=== PATIENT | male | born 1960 | race Caucasian/White ===

== ENCOUNTER 2020-01-18 11:57 | Observation (INO) ==
[2020-01-18 12:17] LABS: Basophils % 0.8 % (0.0-0.8); Eosinophils # 0.1 10*3/uL (0.0-0.87); Eosinophils % 2.6 % (0.00-10.9); Hematocrit 43.1 VOL% (42.0-52.0); Hemoglobin 15.3 GM/DL (14.0-18.0); Immature Granulocytes % 0.2 %; Immature Granulocytes Absolute 0.01 #; Lymphocytes # 1.4 10*3/uL (1.4-4.0); Lymphocytes % 25.8 % (21.2-54.2); Mean Corpuscular HGB Conc 35.5 GM/DL (32-36); Mean Platelet Volume 9.4 FL (9.6-12.0); Monocytes % 5.1 % (1.7-12.7); Neutrophils % 65.5 % (38.7-73.9); Platelet Count 320 T/CUMM (130-400); Red Blood Count 4.79 MC/CUMM (3.8-5.5); Red Cell Distribution Width 12.8 % (9.3-17.3); White Blood Count 5.3 T/CUMM (4-12)
[2020-01-18] MEDS ORDERED: ASPIRIN 325 MG TABLET ONE (12:29)
[2020-01-18] MEDS ORDERED: ASPIRIN 325 MG TABLET PO STA (12:31)
[2020-01-18 12:37] LABS: Bilirubin,Total 1.2 MG/DL (0.2-1.0); Calcium 9.3 MG/DL (8.5-10.1); Osmolality,Calculated 284.5 MOS/KG (273-304); Total Protein 7.9 G/DL (6.4-8.3)
[2020-01-18] MEDS ORDERED: MORPHINE 4 MG/1 ML VIAL IV STA (12:40)
[2020-01-18] MEDS ORDERED: ENOXAPARIN 100 MG/ML SYRINGE SUBCUT STA (12:40)
[2020-01-18] MEDS ORDERED: NITROGLYCERIN 2% OINT 1 INCH/GM PACK TOP STA (12:40)
[2020-01-18] MEDS ORDERED: ONDANSETRON 4 MG/2 ML VIAL IV STA (12:40)
[2020-01-18] MEDS ORDERED: MORPHINE 4 MG/1 ML VIAL ONE (12:41)
[2020-01-18] MEDS ORDERED: NITROGLYCERIN 2% OINT 1 INCH/GM PACK TOP ONE (12:41)
[2020-01-18] MEDS ORDERED: ONDANSETRON 4 MG/2 ML VIAL ONE (12:41)
[2020-01-18] MEDS ORDERED: ENOXAPARIN 60 MG/0.6 ML SYRINGE ONE (12:43)
[2020-01-18] MEDS ORDERED: MAGNESIUM SULF RIDER 2 GM in PREMIX 1 EACH IV PRN (13:07)
[2020-01-18] MEDS ORDERED: MAGNESIUM SULF RIDER 4 GM in PREMIX 1 EACH IV PRN (13:07)
[2020-01-18 13:10] LABS: PT Patient Result 10.5 SECS (9.8-11.9); Partial Thromboplastin Time 27.1 SECS (23.9-33.8)
[2020-01-18] MEDS ORDERED: LABETALOL 20 MG/4 ML SYRINGE IV ONE (13:33)
[2020-01-18] MEDS ORDERED: HEPARIN/NACL 0.9% 2 UNITS/ML 1,000 ML IV ONE (13:36)
[2020-01-18] MEDS ORDERED: LIDOCAINE 1% 20 ML VIAL ONE (13:36)
[2020-01-18] MEDS ORDERED: LABETALOL 20 MG/4 ML SYRINGE IV STA (13:48)
[2020-01-18] MEDS ORDERED: fentaNYL 100 MCG/2 ML VIAL ONE (13:51)
[2020-01-18] MEDS ORDERED: MIDAZOLAM 2 MG/2 ML VIAL ONE (13:51)
[2020-01-18] MEDS ORDERED: HYDROmorphone 2 MG/1 ML VIAL ONE (13:52)
[2020-01-18] MEDS ORDERED: diphenhydrAMINE 50 MG/1 ML VIAL ONE (14:06)
[2020-01-18] MEDS ORDERED: ZALEPLON 5 MG CAPSULE PO PRN (14:36)
[2020-01-18] MEDS ORDERED: NITROGLYCERIN SL 0.4 MG TABLET SL PRN (14:38)
[2020-01-18] MEDS: SODIUM CHLORIDE 0.9% 1,000 ML IV SCH ×2 (15:35→22:33)
[2020-01-18] MEDS ORDERED: INFLUENZA VIRUS VACCINE 0.5 ML SYRINGE IM ONE (15:35)
[2020-01-18] MEDS ORDERED: PNEUMOCOCCAL VACCINE (13 VALENT) 0.5 ML SYRINGE IM ONE (15:35)
[2020-01-18] MEDS ORDERED: ONDANSETRON 4 MG/2 ML VIAL IV PRN (20:33)
[2020-01-18] MEDS: ACETAMINOPHEN 500 MG TABLET PO PRN (21:09)
[2020-01-18] MEDS: DICLOFENAC SODIUM 75 MG TABLET PO SCH (21:11)
[2020-01-18] MEDS: ENOXAPARIN 60 MG/0.6 ML SYRINGE SUBCUT SCH (21:12)
[2020-01-18] MEDS: carvediloL 3.125 MG TABLET PO SCH (21:41)
[2020-01-19] MEDS: ACETAMINOPHEN 500 MG TABLET PO PRN (03:19)
[2020-01-19 06:24] LABS: Risk Ratio 6.03; VLDL CHOLESTEROL 25.2 MG/DL
[2020-01-19 06:25] LABS: Calcium 8.4 MG/DL (8.5-10.1)
[2020-01-19] MEDS: SODIUM CHLORIDE 0.9% 1,000 ML IV SCH (07:16)
[2020-01-19 07:28] VITALS: BP 107/70
[2020-01-19] MEDS: ENOXAPARIN 60 MG/0.6 ML SYRINGE SUBCUT SCH (08:31)
[2020-01-19] MEDS: carvediloL 3.125 MG TABLET PO SCH (08:32)
[2020-01-19] MEDS: DICLOFENAC SODIUM 75 MG TABLET PO SCH (08:32)
[2020-01-19] MEDS ORDERED: ASPIRIN EC 81 MG TABLET PO SCH (09:00)
[2020-01-19] MEDS ORDERED: lisinopriL 10 MG TABLET PO SCH (09:00)
[2020-01-19] MEDS ORDERED: buPROPion XL 150 MG TABLET PO SCH (09:00)
== END 2020-01-19 09:26 | disposition home or self-care (01) ==
LOC: N.EDINP 11:57 → N.ED 11:57 → N.EDINP 13:00 → N.TELES 15:12
PROVIDERS: ADMIT Internal Medicine Cardiovascular Disease; ATTEND Internal Medicine Cardiovascular Disease
PROC: CLCCHCL (ICD-10-PCS; 2020-01-18 14:45)

== ENCOUNTER 2020-05-09 14:53 | Inpatient (IN) ==
[2020-05-09] MEDS ORDERED: oxyCODONE/ACETAMINOPHEN 5-325 MG TABLET PO PRN (15:57)
[2020-05-09] MEDS ORDERED: ACETAMINOPHEN 325 MG TABLET PO PRN (15:57)
[2020-05-09] MEDS ORDERED: HEPARIN DRIP 25,000 UNITS/500 ML PREMIX IV SCH (16:30)
[2020-05-09 16:51] LABS: PT Patient Result 10.3 SECS (9.8-11.9); Partial Thromboplastin Time 27.8 SECS (23.9-33.8)
[2020-05-09] MEDS: ONDANSETRON 4 MG/2 ML VIAL IV PRN (20:09)
[2020-05-09] MEDS: HYDROmorphone 2 MG/1 ML VIAL IV PRN (20:10)
[2020-05-09] MEDS: LACTATED RINGERS 1,000 ML IV SCH (21:57)
[2020-05-10] MEDS: HYDROmorphone 2 MG/1 ML VIAL IV PRN ×6 (00:23→23:09)
[2020-05-10] MEDS: ONDANSETRON 4 MG/2 ML VIAL IV PRN (03:52)
[2020-05-10] MEDS ORDERED: MIDAZOLAM 2 MG/2 ML VIAL IV ONE (07:13)
[2020-05-10] MEDS ORDERED: DIAZEPAM 5 MG TABLET PO ONE (07:13)
[2020-05-10] MEDS ORDERED: fentaNYL 100 MCG/2 ML VIAL IV ONE (07:13)
[2020-05-10] MEDS ORDERED: ceFAZolin 1,000 MG in SYRINGE 1 EACH IV ONE (07:16)
[2020-05-10] MEDS: ROSUVASTATIN 20 MG TABLET PO SCH (08:22)
[2020-05-10] MEDS: PANTOPRAZOLE 40 MG TABLET PO SCH (08:22)
[2020-05-10] MEDS: GABAPENTIN 300 MG CAPSULE PO SCH ×2 (08:22→21:05)
[2020-05-10] MEDS ORDERED: HEPARIN/NACL 0.9% 2 UNITS/ML 2,000 ML IV ONE (10:14)
[2020-05-10] MEDS ORDERED: HYDROmorphone 2 MG/1 ML VIAL IV ONE (11:26)
[2020-05-10] MEDS ORDERED: ALTEPLASE 2 MG VIAL ONE ×2 (12:02→12:26)
[2020-05-10] MEDS ORDERED: HEPARIN 5,000 UNIT/1 ML VIAL ONE (12:03)
[2020-05-10] MEDS ORDERED: NITROGLYCERIN DRIP 50 MG/250 ML BOTTLE IV ONE (12:12)
[2020-05-10] MEDS ORDERED: ALTEPLASE 24 MG in SODIUM CHLORIDE 0.9% 480 ML IV SCH (13:00)
[2020-05-10] MEDS: HEPARIN DRIP 25,000 UNITS/500 ML PREMIX IV SCH (13:45)
[2020-05-10] MEDS ORDERED: LIDOCAINE 1% 5 ML VIAL ONE (14:06)
[2020-05-10] MEDS ORDERED: BUPIVACAINE MPF 0.25% 30 ML VIAL ONE (14:06)
[2020-05-10] MEDS ORDERED: DEXAMETHASONE 4 MG/1 ML VIAL ONE (14:07)
[2020-05-10 14:31] LABS: PT Patient Result 10.8 SECS (9.8-11.9)
[2020-05-10 14:37] LABS: Partial Thromboplastin Time 67.7 SECS (23.9-33.8)
[2020-05-10] MEDS: SODIUM CHLORIDE 0.45% 1,000 ML IV SCH (14:48)
[2020-05-10] MEDS: LACTATED RINGERS 1,000 ML IV SCH ×2 (14:48→16:26)
[2020-05-10 16:28] LABS: PT Patient Result 10.6 SECS (9.8-11.9)
[2020-05-10] MEDS: oxyCODONE/ACETAMINOPHEN 5-325 MG TABLET PO PRN ×2 (17:41→22:01)
[2020-05-11 01:23] LABS: PT Patient Result 10.8 SECS (9.8-11.9)
[2020-05-11] MEDS: HYDROmorphone 2 MG/1 ML VIAL IV PRN ×3 (03:01→13:05)
[2020-05-11] MEDS: oxyCODONE/ACETAMINOPHEN 5-325 MG TABLET PO PRN ×2 (03:46→10:52)
[2020-05-11] MEDS ORDERED: LIDOCAINE 100 MG/5 ML SYRINGE IV ONE (04:21)
[2020-05-11] MEDS ORDERED: KETOROLAC 30 MG/1 ML VIAL IV ONE (04:32)
[2020-05-11] MEDS: ROSUVASTATIN 20 MG TABLET PO SCH (08:23)
[2020-05-11] MEDS: PANTOPRAZOLE 40 MG TABLET PO SCH (08:23)
[2020-05-11] MEDS: GABAPENTIN 300 MG CAPSULE PO SCH ×3 (08:23→20:47)
[2020-05-11] MEDS: LACTATED RINGERS 1,000 ML IV SCH (11:57)
[2020-05-11] MEDS ORDERED: NALOXONE 0.4 MG/ML VIAL IV PRN (12:25)
[2020-05-11 13:14] LABS: Partial Thromboplastin Time 33.6 SECS (23.9-33.8)
[2020-05-11] MEDS: HEPARIN DRIP 25,000 UNITS/500 ML PREMIX IV SCH (14:23)
[2020-05-11] MEDS: SODIUM CHLORIDE 0.45% 1,000 ML IV SCH (15:40)
[2020-05-11] MEDS: HYDROmorphone PCA 30 MG/30 ML SYRINGE IV SCH (15:40)
[2020-05-11] MEDS: ASPIRIN EC 81 MG TABLET PO SCH (15:52)
[2020-05-11] MEDS: ONDANSETRON 4 MG/2 ML VIAL IV PRN (20:47)
[2020-05-12] MEDS: oxyCODONE/ACETAMINOPHEN 5-325 MG TABLET PO PRN ×4 (00:05→20:18)
[2020-05-12 01:04] LABS: Partial Thromboplastin Time 29.4 SECS (23.9-33.8)
[2020-05-12] MEDS: SODIUM CHLORIDE 0.45% 1,000 ML IV SCH (07:30)
[2020-05-12] MEDS: GABAPENTIN 300 MG CAPSULE PO SCH (09:11)
[2020-05-12] MEDS: PANTOPRAZOLE 40 MG TABLET PO SCH (09:11)
[2020-05-12] MEDS: ASPIRIN EC 81 MG TABLET PO SCH (09:11)
[2020-05-12] MEDS: ROSUVASTATIN 20 MG TABLET PO SCH (09:11)
[2020-05-12] MEDS: ONDANSETRON 4 MG/2 ML VIAL IV PRN (09:22)
[2020-05-12 13:02] LABS: Partial Thromboplastin Time 28.4 SECS (23.9-33.8)
[2020-05-12] MEDS: diphenhydrAMINE CAP 25 MG CAPSULE PO PRN (13:18)
[2020-05-12] MEDS: GABAPENTIN 400 MG CAPSULE PO SCH ×2 (14:45→20:18)
[2020-05-12] MEDS: HYDROmorphone PCA 30 MG/30 ML SYRINGE IV SCH (21:47)
[2020-05-13] MEDS: oxyCODONE/ACETAMINOPHEN 5-325 MG TABLET PO PRN ×3 (03:07→19:39)
[2020-05-13] MEDS: SODIUM CHLORIDE 0.45% 1,000 ML IV SCH ×2 (07:30→19:40)
[2020-05-13] MEDS: ASPIRIN EC 81 MG TABLET PO SCH (09:24)
[2020-05-13] MEDS: ROSUVASTATIN 20 MG TABLET PO SCH (09:25)
[2020-05-13] MEDS: GABAPENTIN 400 MG CAPSULE PO SCH ×3 (09:26→20:57)
[2020-05-13] MEDS: PANTOPRAZOLE 40 MG TABLET PO SCH (09:26)
[2020-05-13] MEDS: diphenhydrAMINE CAP 25 MG CAPSULE PO PRN ×2 (11:27→17:33)
[2020-05-13] MEDS: HYDROmorphone PCA 30 MG/30 ML SYRINGE IV SCH (12:30)
[2020-05-13 12:53] LABS: Partial Thromboplastin Time 27.3 SECS (23.9-33.8)
[2020-05-13] MEDS: buPROPion XL 150 MG TABLET PO SCH (13:27)
[2020-05-14] MEDS: oxyCODONE/ACETAMINOPHEN 5-325 MG TABLET PO PRN ×3 (03:53→21:34)
[2020-05-14] MEDS: ASPIRIN EC 81 MG TABLET PO SCH (09:42)
[2020-05-14] MEDS: GABAPENTIN 400 MG CAPSULE PO SCH (09:43)
[2020-05-14] MEDS: ROSUVASTATIN 20 MG TABLET PO SCH (09:43)
[2020-05-14] MEDS: diphenhydrAMINE CAP 25 MG CAPSULE PO PRN ×3 (09:43→21:34)
[2020-05-14] MEDS: PANTOPRAZOLE 40 MG TABLET PO SCH (09:43)
[2020-05-14] MEDS: buPROPion XL 150 MG TABLET PO SCH (09:43)
[2020-05-14] MEDS: GABAPENTIN 600 MG TABLET PO SCH ×2 (15:47→21:34)
[2020-05-14] MEDS: HYDROmorphone PCA 30 MG/30 ML SYRINGE IV SCH (17:33)
[2020-05-14] MEDS: ONDANSETRON 4 MG/2 ML VIAL IV PRN (21:43)
[2020-05-15] MEDS: SODIUM CHLORIDE 0.45% 1,000 ML IV SCH ×2 (08:33→17:31)
[2020-05-15] MEDS: ASPIRIN EC 81 MG TABLET PO SCH (08:33)
[2020-05-15] MEDS: PANTOPRAZOLE 40 MG TABLET PO SCH (08:34)
[2020-05-15] MEDS: ROSUVASTATIN 20 MG TABLET PO SCH (08:34)
[2020-05-15] MEDS: GABAPENTIN 600 MG TABLET PO SCH ×3 (08:34→21:39)
[2020-05-15] MEDS: buPROPion XL 150 MG TABLET PO SCH (11:54)
[2020-05-15] MEDS ORDERED: LIDOCAINE 1% 5 ML VIAL ONE (15:37)
[2020-05-15] MEDS ORDERED: BUPIVACAINE 0.5% 50 ML VIAL ONE (15:37)
[2020-05-15] MEDS ORDERED: BUPIVACAINE MPF 0.25% 30 ML VIAL ONE (15:37)
[2020-05-15] MEDS ORDERED: DEXAMETHASONE 4 MG/1 ML VIAL ONE (15:38)
[2020-05-15] MEDS ORDERED: ROPIVACAINE 0.5% 30 ML VIAL ONE (15:52)
[2020-05-15] MEDS ORDERED: MIDAZOLAM 2 MG/2 ML VIAL ONE (15:53)
[2020-05-15] MEDS ORDERED: fentaNYL 100 MCG/2 ML VIAL ONE (15:53)
[2020-05-15] MEDS: HYDROmorphone PCA 30 MG/30 ML SYRINGE IV SCH (17:38)
[2020-05-15] MEDS: oxyCODONE/ACETAMINOPHEN 5-325 MG TABLET PO PRN (21:40)
[2020-05-16] MEDS: oxyCODONE/ACETAMINOPHEN 5-325 MG TABLET PO PRN ×2 (04:45→10:04)
[2020-05-16] MEDS: ONDANSETRON 4 MG/2 ML VIAL IV PRN (04:46)
[2020-05-16] MEDS: buPROPion XL 150 MG TABLET PO SCH (09:15)
[2020-05-16] MEDS: ROSUVASTATIN 20 MG TABLET PO SCH (09:16)
[2020-05-16] MEDS: ASPIRIN EC 81 MG TABLET PO SCH (09:16)
[2020-05-16] MEDS: GABAPENTIN 600 MG TABLET PO SCH (09:16)
[2020-05-16] MEDS: SODIUM CHLORIDE 0.45% 1,000 ML IV SCH (09:16)
[2020-05-16] MEDS: PANTOPRAZOLE 40 MG TABLET PO SCH (09:16)
[2020-05-16 11:11] VITALS: BP 145/77
[2020-05-16] MEDS: HYDROmorphone PCA 30 MG/30 ML SYRINGE IV SCH (11:28)
== END 2020-05-16 11:21 | disposition home or self-care (01) | DRG 546 ==
LOC: N.3E 15:22 → N.ICU 05-10 13:51 → N.3E 05-11 18:50
PROVIDERS: ADMIT Surgery; ATTEND Surgery
PROC: IRURORE (2020-05-11 12:45)